=== PATIENT | male | born 1945 | race Caucasian/White ===

== ENCOUNTER → 2019-10-23 | Outpatient (CLI) | payer OTHER, MEDICARE ==
[~2019-10-23] VITALS: Ht 177.8 cm; Wt 87.5 kg
[~2019-10-23] MED LIST: ACTOS15 MG PO; ADULT LOW DOSE81 MG PO; AMBEREN PO; AMITRIPTYLINE H50 M2 PO; APAP650 PO; ASPIRIN EC325 M1 PO; CINNAMON PO; COZAAR 25 MG TA25 M1 PO; FISH OIL 1,0001 EAC9 PO; GARLIC OIL1 EAC1 PO; GLUCOPHAGE XR500 MG PO; JARDIANCE10 MG PO; LIPITOR40 MG PO; LORTAB 5 MG/5001 TA1 PO; LOSARTAN POTASS25 MG PO; METAMUCIL0.52 GM PO; NEURONTIN300 MG PO; NITROSTAT0.4 MG PO; OMEPRAZOLE 20 M20 M1 PO; ONGLYZA5 MG PO; PERCOCET 5-3251 EACH PO; PRAVACHOL40 MG PO; PRILOSEC 20 MG20 MG PO; PROAIR HFA8.5 GM INH; TOPROL XL25 MG PO; VITAMIN B-125000 MCG SL
--- NOTE | 2019-10-26 10:45 | P ---
[facility] [place] [address] PROCEDURE REPORT Name: JACQUELYN SALDIVAR [facility] #: [facility] [id number] Admission: 10/23/19 Attend Phys: Chris Velasco MD Discharge: Date of : 45 Report #: [id number] THIS REPORT FOR: cc: Fredy Schuler Louis D. DO Thesing, John A. MD ~ CC: Chris Schuler DO DATE OF SERVICE: 10/23/2019 OUTPATIENT COLONOSCOPY REPORT BRIEF HISTORY: The patient is a 74-year-old male with a family history of colon cancer, mother at age 80. PREOPERATIVE DIAGNOSIS: Family history of colon cancer. POSTOPERATIVE DIAGNOSIS: Small internal hemorrhoids. MEDICATIONS: Deep sedation with propofol per anesthesia. SPECIMEN: None. ESTIMATED BLOOD LOSS: None. PROCEDURE: Colonoscopy to cecum and terminal ileum. FINDINGS: Prior to propofol sedation, procedure of colonoscopy was discussed with the patient as well as potential risks and its complications. He indicates he understands and desires to proceed. DESCRIPTION OF PROCEDURE: With the patient in left lateral decubitus positioning, digital examination was completed, which revealed no abnormalities. Subsequently, the Olympus video colonoscope was introduced in the rectum, advanced under direct vision to the cecum. This was done with minimal difficulty. Cecum was identified by the ileocecal valve and the appendiceal orifice. I was able to visualize the distal segment of terminal ileum, which was inspected and noted to be unremarkable. At that point, the scope was slowly withdrawn and careful circumferential views were obtained. Upon slow withdrawal of the scope, the prep was good. The mucosa was within normal limits, normal vascular pattern, normal light reflex. There was some residual material, but this was irrigated and fairly easily suctioned away. As we withdrew the scope, the mucosa was within normal limits, normal vascular pattern, normal light reflex. No neoplastic lesions were seen on today's exam. The mucosa was normal [facility] [address] [place] [address] PROCEDURE REPORT Name: JACQUELYN SALDIVAR Room #: REG [facility].#: [id number] Admission: 10/23/19 Attend Phys: Chris Velasco MD Discharge: Date of : 45 Report #: [id number]. Diverticular disease was not seen. Scope was withdrawn in the rectum and no abnormalities were seen. Upon retroflex in the rectum, small internal hemorrhoids were seen. Scope was withdrawn. The patient tolerated the procedure well. CONDITION OF THE PATIENT UPON DISCHARGE: Following procedure, the patient drowsy, arousable and conversant and will be discharged home when fully ambulatory. INSTRUCTIONS TO THE PATIENT AND FAMILY AT THE TIME OF DISCHARGE: No neoplastic lesions found today. I have suggested a high fiber diet. Given the fact that his mother was an elderly and he does not have adenomatous polyps on his last exam, to return in 10 years would be reasonable for this patient. He will return to care of Dr. Fredy Schuler and return to see me as needed. <ELECTRONICALLY SIGNED> By: Chris Velasco MD 10/26/19 [id number] Chris Velasco MD /nt
== END | disposition home or self-care (01) ==
LOC: GI 09:06
DX: Z12.11 Encounter for screening for malignant neoplasm of colon (principal); Z80.0 Family history of malignant neoplasm of digestive organs; K64.8 Other hemorrhoids; I10 Essential (primary) hypertension; E11.9 Type 2 diabetes mellitus without complications; K21.9 Gastro-esophageal reflux disease without esophagitis; J45.909 Unspecified asthma, uncomplicated; E78.00 Pure hypercholesterolemia, unspecified; Z98.890 Other specified postprocedural states; Z79.899 Other long term (current) drug therapy
CPT/HCPCS: 62110; 62900

== ENCOUNTER → 2020-02-02 | Outpatient (CLI) | payer OTHER, MEDICARE | LOC: SJCVCIMAG 09:34 | PROVIDERS: ATTEND Internal Medicine Cardiovascular Disease | DX: I25.10 Atherosclerotic heart disease of native coronary artery without angina pectoris (principal); I10 Essential (primary) hypertension; I45.10 Unspecified right bundle-branch block; Z95.1 Presence of aortocoronary bypass graft ==

== ENCOUNTER → 2020-11-29 | Outpatient (CLI) | payer OTHER, MEDICARE | LOC: SJCVC 15:38 | PROVIDERS: ATTEND Internal Medicine Cardiovascular Disease | DX: I10 Essential (primary) hypertension (principal); I25.10 Atherosclerotic heart disease of native coronary artery without angina pectoris; E78.5 Hyperlipidemia, unspecified; E78.00 Pure hypercholesterolemia, unspecified; I73.9 Peripheral vascular disease, unspecified; R09.89 Other specified symptoms and signs involving the circulatory and respiratory systems; E11.9 Type 2 diabetes mellitus without complications; Z72.89 Other problems related to lifestyle; Z88.8 Allergy status to other drugs, medicaments and biological substances ==

== ENCOUNTER → 2021-05-23 | Outpatient (CLI) | payer OTHER, MEDICARE | LOC: SJCVCIMAG 09:53 | PROVIDERS: ATTEND Internal Medicine Cardiovascular Disease | DX: I65.23 Occlusion and stenosis of bilateral carotid arteries (principal); I70.203 Unspecified atherosclerosis of native arteries of extremities, bilateral legs; E11.9 Type 2 diabetes mellitus without complications; E78.00 Pure hypercholesterolemia, unspecified; I25.10 Atherosclerotic heart disease of native coronary artery without angina pectoris; I10 Essential (primary) hypertension; Z86.16 Personal history of COVID-19; Z95.1 Presence of aortocoronary bypass graft; Z79.82 Long term (current) use of aspirin; Z79.899 Other long term (current) drug therapy; Z88.8 Allergy status to other drugs, medicaments and biological substances; Z72.89 Other problems related to lifestyle ==